=== PATIENT | female | born 1955 | race Caucasian/White ===

== ENCOUNTER 2018-04-03 16:57 | Emergency (ER) | payer OTHER ==
[~2018-04-03] VITALS: Ht 160 cm; Wt 60.0 kg
[2018-04-03 17:03] VITALS: BP 148/75
== END 2018-04-03 23:21 | disposition left against medical advice (07) ==
LOC: ER 16:57
DX: R22.0 Localized swelling, mass and lump, head (principal); I10 Essential (primary) hypertension; F17.200 Nicotine dependence, unspecified, uncomplicated
CPT/HCPCS: 99281

== ENCOUNTER 2018-04-29 12:45 | Emergency (ER) | payer OTHER ==
[~2018-04-29] VITALS: Ht 160 cm; Wt 60.0 kg
[2018-04-29 12:48] VITALS: BP 135/75
== END 2018-04-29 19:35 | disposition left against medical advice (07) ==
LOC: ER 15:29
DX: L98.9 Disorder of the skin and subcutaneous tissue, unspecified (principal); Z53.21 Procedure and treatment not carried out due to patient leaving prior to being seen by health care provider

== ENCOUNTER 2018-05-05 13:47 | Emergency (ER) | payer OTHER ==
[~2018-05-05] VITALS: Ht 160 cm; Wt 60.0 kg
[2018-05-05 13:57] VITALS: BP 131/72
== END 2018-05-05 16:30 | disposition left against medical advice (07) ==
LOC: ER 14:04
DX: Z53.21 Procedure and treatment not carried out due to patient leaving prior to being seen by health care provider (principal)

== ENCOUNTER 2018-07-25 11:27 | Emergency (ER) | payer OTHER ==
[~2018-07-25] VITALS: Ht 160 cm; Wt 60.0 kg
[2018-07-25 11:31] VITALS: BP 155/87
== END 2018-07-25 15:00 | disposition left against medical advice (07) ==
LOC: ER 14:50
DX: Z53.21 Procedure and treatment not carried out due to patient leaving prior to being seen by health care provider (principal)

== ENCOUNTER 2019-03-24 14:03 | Emergency (ER) | payer OTHER ==
[~2019-03-24] VITALS: Ht 160 cm; Wt 60.0 kg
[2019-03-24 14:15] VITALS: BP 126/79
== END 2019-03-24 15:54 | disposition home or self-care (01) ==
LOC: ER 14:08
DX: S91.052A Open bite, left ankle, initial encounter (principal); S91.051A Open bite, right ankle, initial encounter; S61.452A Open bite of left hand, initial encounter; S61.451A Open bite of right hand, initial encounter; D64.9 Anemia, unspecified; I10 Essential (primary) hypertension; W57.XXXA Bitten or stung by nonvenomous insect and other nonvenomous arthropods, initial encounter; Y93.89 Activity, other specified; Y92.89 Other specified places as the place of occurrence of the external cause; Y99.8 Other external cause status
CPT/HCPCS: 99283

== ENCOUNTER 2019-04-09 13:28 | Emergency (ER) | payer OTHER ==
[~2019-04-09] VITALS: Ht 160 cm; Wt 60.0 kg
[2019-04-09] MEDS ORDERED: PREDNISONE 20MG TABLET PO ONE (15:30)
[2019-04-09 15:42] VITALS: BP 130/88
== END 2019-04-09 15:43 | disposition home or self-care (01) ==
LOC: ER 13:28
DX: S40.862A Insect bite (nonvenomous) of left upper arm, initial encounter (principal); S40.861A Insect bite (nonvenomous) of right upper arm, initial encounter; D64.9 Anemia, unspecified; I10 Essential (primary) hypertension; W57.XXXA Bitten or stung by nonvenomous insect and other nonvenomous arthropods, initial encounter; Y93.89 Activity, other specified; Y92.89 Other specified places as the place of occurrence of the external cause; Y99.8 Other external cause status
CPT/HCPCS: 99283; J7512

== ENCOUNTER 2019-07-13 14:43 | Emergency (ER) | payer OTHER ==
[~2019-07-13] VITALS: Ht 160 cm; Wt 63.0 kg
[2019-07-13 15:17] VITALS: BP 132/78
== END 2019-07-13 15:51 | disposition left against medical advice (07) ==
LOC: ER 14:43
DX: Z53.21 Procedure and treatment not carried out due to patient leaving prior to being seen by health care provider (principal)

== ENCOUNTER 2019-08-25 14:32 | Emergency (ER) | payer OTHER ==
[~2019-08-25] VITALS: Ht 160 cm; Wt 61.0 kg
[2019-08-25 14:42] VITALS: BP 115/64
== END 2019-08-25 16:18 | disposition left against medical advice (07) ==
LOC: ER 14:32
DX: R06.02 Shortness of breath (principal); Z53.21 Procedure and treatment not carried out due to patient leaving prior to being seen by health care provider

== ENCOUNTER 2019-09-19 19:04 | Inpatient (IN) | payer OTHER ==
[~2019-09-19] VITALS: Ht 160 cm; Wt 69.2 kg
[2019-09-19] MEDS ORDERED: SODIUM CHLORIDE 0.9% 1,000 ML IV ONE (22:38)
[2019-09-19 23:17] LABS: EOSINOPHILS % 1.9 % (0.0-5.0); LYMPHOCYTES % 23.4 % (20.0-50.0); MEAN CORPUSCULAR HEMOGLOBIN 22.7 pg (28.0-32.0); MONOCYTES % 9.8 % (2.0-8.0); NEUTROPHILS % 63.9 % (40.0-76.0); PLATELET 303 x1000/uL (130-400); RED BLOOD CELL COUNT 1.96 mill/uL (4.2-5.4); RED CELL DISTRIBUTION WIDTH 20.4 % (11.6-14.6)
[2019-09-19 23:19] LABS: HEMATOCRIT. 14.5 % (36.0-48.0); HEMOGLOBIN. 4.5 g/dL (12.0-16.0)
[2019-09-19 23:23] LABS: CHLORIDE 109 mEq/L (98-107)
[2019-09-20] VITALS (8 sets, daily range): BP systolic 116–156; BP diastolic 54–78
[2019-09-20] MEDS ORDERED: ACETAMINOPHEN 325MG TABLET PO ONE (01:00)
[2019-09-20] MEDS ORDERED: LISI30TA36 MT (10:44)
[2019-09-20] MEDS ORDERED: AMLO5TAB88 MT (10:44)
[2019-09-20 11:57] LABS: MEAN CORPUSCULAR HEMOGLOBIN 24.1 pg (28.0-32.0); MEAN CORPUSCULAR VOLUME 77.2 fL (81.0-99.0); PLATELET 286 x1000/uL (130-400); RED BLOOD CELL COUNT 2.71 mill/uL (4.2-5.4); RED CELL DISTRIBUTION WIDTH 20.5 % (11.6-14.6)
[2019-09-20] MEDS ORDERED: PNEUMOCOCCAL 23-VAL P-SAC VAC 0.5 ML IM ONE (12:00)
[2019-09-20] MEDS ORDERED: HYDROCODONE/ACETAMINOPHEN 5/325MG TABLET PO PRN (12:00)
[2019-09-20] MEDS ORDERED: ACETAMINOPHEN 650MG/20.3ML UDC PO PRN (12:00)
[2019-09-20 12:01] LABS: HEMATOCRIT 20.9 % (36.0-48.0); HEMOGLOBIN 6.5 g/dL (12.0-16.0)
[2019-09-20] MEDS ORDERED: ONDANSETRON HCL 4MG/2ML INJ IV PRN (12:30)
[2019-09-20] MEDS ORDERED: MORPHINE SULFATE 2 MG/ML CPJ (NOT FOR IM USE) IV PRN (12:30)
[2019-09-20] MEDS ORDERED: HYDRALAZINE 20MG/ML VIAL IV PRN (13:45)
[2019-09-20] MEDS: DEXT 5%/0.45% NACL 1000ML 1,000 ML IV SCH (13:46)
[2019-09-20] MEDS: PANTOPRAZOLE SODIUM 40 MG/VIAL IV SCH (13:46)
[2019-09-20] MEDS: ACETAMINOPHEN 325MG TABLET PO PRN (14:15)
[2019-09-20 15:01] LABS: CHLORIDE 112 mEq/L (98-107)
[2019-09-20 15:03] LABS: INR 0.9; PROTHROMBIN TIME 9.7 sec (9.6-11.0)
[2019-09-20 15:09] LABS: TOTAL IRON BINDING CAPACITY 399 ug/dL (250-450)
[2019-09-20 17:59] LABS: CLARITY URINE CLEAR (CLEAR); COLOR URINE YELLOW (YELLOW); KETONES URINE NEGATIVE (NEGATIVE); LEUKOCYTE ESTERASE URINE 1+ (NEGATIVE); NITRITE URINE NEGATIVE (NEGATIVE); OCCULT BLOOD URINE NEGATIVE (NEGATIVE); PROTEIN URINE NEGATIVE (NEGATIVE); SPECIFIC GRAVITY URINE 1.008 (1.005-1.030); UROBILINOGEN URINE 0.2 E.U./dL (0.2-1.0)
[2019-09-20 18:22] LABS: *BENZODIAZEPINES SCREEN URINE NEGATIVE (NEGATIVE); *COCAINE SCREEN URINE NEGATIVE (NEGATIVE); METHADONE URINE SCREEN NEGATIVE (NEGATIVE)
[2019-09-20 18:23] LABS: *AMPHETAMINES SCREEN URINE PRESUMTIVE POSITIVE (NEGATIVE); *BARBITURATES SCREEN URINE NEGATIVE (NEGATIVE); CANNABINOID URINE SCREEN NEGATIVE (NEGATIVE); OPIATES URINE SCREEN NEGATIVE (NEGATIVE); PHENCYCLIDINE URINE SCREEN NEGATIVE (NEGATIVE)
[2019-09-20] MEDS ORDERED: VANCOMYCIN 1500MG in DEXTROSE 5% WATER 250ML IV NR (20:00)
[2019-09-20] MEDS: PIPERACILLIN/TAZOBACTAM 2.25 G in DEXTROSE 5% WATER 50 ML IV SCH (20:55)
[2019-09-21] VITALS (11 sets, daily range): BP systolic 108–137; BP diastolic 50–82
[2019-09-21] MEDS: DEXT 5%/0.45% NACL 1000ML 1,000 ML IV SCH ×2 (02:20→15:25)
[2019-09-21] MEDS: PIPERACILLIN/TAZOBACTAM 2.25 G in DEXTROSE 5% WATER 50 ML IV SCH ×4 (03:20→20:36)
[2019-09-21] MEDS: PANTOPRAZOLE SODIUM 40 MG/VIAL IV SCH (09:04)
[2019-09-21 09:17] LABS: BASOPHILS % 0.7 % (0.0-2.0); EOSINOPHILS % 3.5 % (0.0-5.0); HEMATOCRIT. 22.6 % (36.0-48.0); HEMOGLOBIN. 7.2 g/dL (12.0-16.0); LYMPHOCYTES % 19.9 % (20.0-50.0); MEAN CORPUSCULAR HEMOGLOBIN 25.2 pg (28.0-32.0); MEAN CORPUSCULAR VOLUME 79.1 fL (81.0-99.0); MEAN PLATELET VOLUME 8.1 fl (7.4-10.4); MONOCYTES % 8.4 % (2.0-8.0); NEUTROPHILS % 67.5 % (40.0-76.0); PLATELET 269 x1000/uL (130-400); RED BLOOD CELL COUNT 2.86 mill/uL (4.2-5.4); RED CELL DISTRIBUTION WIDTH 21.4 % (11.6-14.6)
[2019-09-21] MEDS ORDERED: FENTANYL CITRATE/PF 50MCG/ML 2ML VIAL ONE (12:40)
[2019-09-21] MEDS ORDERED: MIDAZOLAM HCL 5 MG/5 ML VIAL ONE (12:40)
[2019-09-21] MEDS ORDERED: MIDAZOLAM HCL 2 MG/2 ML VIAL IV PRN (12:46)
[2019-09-21] MEDS ORDERED: FENTANYL CITRATE/PF 50MCG/ML 2ML VIAL IV PRN (12:47)
[2019-09-21] MEDS ORDERED: VANCOMYCIN 1 G PREMIX 200 ML IV SCH (15:00)
[2019-09-21] MEDS ORDERED: METOCLOPRAMIDE HCL 10MG/2ML VIAL IV NR (20:30)
[2019-09-21] MEDS ORDERED: BISACODYL 5MG TABLET PO NR (20:30)
[2019-09-21] MEDS ORDERED: SORBITOL 70% SOLN 30ML PO NR (21:00)
[2019-09-21] MEDS: IRON SUCROSE COMPLEX 100 MG/5 ML ML IV SCH (22:58)
[2019-09-21] MEDS ORDERED: BISACODYL 5MG TABLET PO PRN (23:30)
[2019-09-21] MEDS: BISACODYL 5MG TABLET PO SCH (23:53)
[2019-09-21] MEDS: METOCLOPRAMIDE HCL 10MG/2ML VIAL IV SCH (23:53)
[2019-09-22] VITALS (7 sets, daily range): BP systolic 133–162; BP diastolic 72–98
[2019-09-22] MEDS: SORBITOL 70% SOLN 30ML PO SCH ×2 (00:24→06:42)
[2019-09-22 01:09] LABS: HEMOGLOBIN 10.2 g/dL (12.0-16.0)
[2019-09-22] MEDS: PIPERACILLIN/TAZOBACTAM 2.25 G in DEXTROSE 5% WATER 50 ML IV SCH ×4 (02:27→21:49)
[2019-09-22 04:24] LABS: BASOPHILS % 0.9 % (0.0-2.0); EOSINOPHILS % 1.3 % (0.0-5.0); HEMATOCRIT. 31.1 % (36.0-48.0); HEMOGLOBIN. 10.3 g/dL (12.0-16.0); LYMPHOCYTES % 9.1 % (20.0-50.0); MEAN CORPUSCULAR HEMOGLOBIN 26.5 pg (28.0-32.0); MEAN CORPUSCULAR VOLUME 79.9 fL (81.0-99.0); MEAN PLATELET VOLUME 7.9 fl (7.4-10.4); MONOCYTES % 9.7 % (2.0-8.0); PLATELET 306 x1000/uL (130-400); RED BLOOD CELL COUNT 3.88 mill/uL (4.2-5.4); RED CELL DISTRIBUTION WIDTH 20.2 % (11.6-14.6)
[2019-09-22] MEDS: DEXT 5%/0.45% NACL 1000ML 1,000 ML IV SCH ×2 (04:31→17:28)
[2019-09-22] MEDS: BISACODYL 5MG TABLET PO SCH (05:39)
[2019-09-22] MEDS: METOCLOPRAMIDE HCL 10MG/2ML VIAL IV SCH (05:39)
[2019-09-22] MEDS: PANTOPRAZOLE SODIUM 40 MG/VIAL IV SCH (08:39)
[2019-09-22] MEDS ORDERED: MIDAZOLAM HCL 5 MG/5 ML VIAL ONE (11:15)
[2019-09-22] MEDS ORDERED: FENTANYL CITRATE/PF 50MCG/ML 2ML VIAL ONE (11:15)
[2019-09-22] MEDS ORDERED: DIAZEPAM 5 MG/ML 2ML CPJ ONE (11:16)
[2019-09-22] MEDS ORDERED: SIMETHICONE 40 MG/0.6 ML 30ML ONE (11:16)
[2019-09-22] MEDS ORDERED: FENTANYL CITRATE/PF 50MCG/ML 2ML VIAL IV ONE (11:23)
[2019-09-22] MEDS ORDERED: MIDAZOLAM HCL 5 MG/5 ML VIAL IV ONE (11:24)
[2019-09-22] MEDS ORDERED: DIAZEPAM 5 MG/ML 2ML CPJ IV ONE (11:26)
[2019-09-22 17:19] LABS: VITAMIN B12 SERUM >2000 pg/mL pg/mL (211-911)
[2019-09-22 17:32] LABS: HEMATOCRIT 28.6 % (36.0-48.0); HEMOGLOBIN 9.2 g/dL (12.0-16.0)
[2019-09-22] MEDS: IPRATROPIUM/ALBUTEROL 0.5-3(2.5)MG/3ML NEB HHN SCH (21:46)
[2019-09-22] MEDS: IRON SUCROSE COMPLEX 100 MG/5 ML ML IV SCH (21:49)
[2019-09-22] MEDS: ACETAMINOPHEN 325MG TABLET PO PRN (22:04)
[2019-09-23] VITALS: BP 131/69
[2019-09-23] MEDS ORDERED: ACETAMINOPHEN 325MG TABLET PO PRN (00:30)
[2019-09-23] MEDS: IPRATROPIUM/ALBUTEROL 0.5-3(2.5)MG/3ML NEB HHN SCH ×2 (00:58→01:59)
[2019-09-23] MEDS: PIPERACILLIN/TAZOBACTAM 2.25 G in DEXTROSE 5% WATER 50 ML IV SCH ×3 (03:24→13:09)
[2019-09-23 04:00] VITALS: BP 114/74
[2019-09-23 06:08] LABS: BASOPHILS % 0.6 % (0.0-2.0); EOSINOPHILS % 1.1 % (0.0-5.0); HEMATOCRIT. 27.1 % (36.0-48.0); HEMOGLOBIN. 8.9 g/dL (12.0-16.0); LYMPHOCYTES % 11.2 % (20.0-50.0); MEAN CORPUSCULAR HEMOGLOBIN 26.3 pg (28.0-32.0); MEAN CORPUSCULAR VOLUME 79.9 fL (81.0-99.0); MEAN PLATELET VOLUME 8.2 fl (7.4-10.4); MONOCYTES % 11.5 % (2.0-8.0); NEUTROPHILS % 75.6 % (40.0-76.0); PLATELET 261 x1000/uL (130-400); RED BLOOD CELL COUNT 3.39 mill/uL (4.2-5.4); RED CELL DISTRIBUTION WIDTH 21.2 % (11.6-14.6)
[2019-09-23 08:00] VITALS: BP 124/75
[2019-09-23] MEDS: PANTOPRAZOLE SODIUM 40 MG/VIAL IV SCH (08:22)
[2019-09-23 12:00] VITALS: BP 136/81
[2019-09-23 15:53] VITALS: BP 140/75
[2019-09-23 16:00] VITALS: BP 140/75
[2019-09-24 09:06] LABS: FOLATE HEMATOCRIT 27.7 % (34.0-46.6)
[2019-09-25 13:06] LABS: FOLATE RBC 1780 ng/mL (>498)
== END 2019-09-23 16:51 | disposition home or self-care (01) | DRG 241 ==
LOC: ER 19:04 → 5WST 09-20 00:37 → EDBEDREQ 09-20 00:43 → EDBEDREQTM 09-20 00:43 → ENRESERV 09-20 08:17 → 5WST 09-21 22:55
PROVIDERS: ADMIT Internal Medicine; ATTEND Internal Medicine
PROC: 30233N1 Transfusion of Nonautologous Red Blood Cells into Peripheral Vein, Percutaneous Approach (ICD-10-PCS; 2019-09-20)
PROC: 0DB68ZX Excision of Stomach, Via Natural or Artificial Opening Endoscopic, Diagnostic (ICD-10-PCS; principal; 2019-09-21)
PROC: 0DB78ZX Excision of Stomach, Pylorus, Via Natural or Artificial Opening Endoscopic, Diagnostic (ICD-10-PCS; 2019-09-21)
PROC: 0DJD8ZZ Inspection of Lower Intestinal Tract, Via Natural or Artificial Opening Endoscopic (ICD-10-PCS; 2019-09-22)
DX: K29.71 Gastritis, unspecified, with bleeding (principal); N17.0 Acute kidney failure with tubular necrosis; E43 Unspecified severe protein-calorie malnutrition; E87.8 Other disorders of electrolyte and fluid balance, not elsewhere classified; E86.0 Dehydration; D50.9 Iron deficiency anemia, unspecified; F19.20 Other psychoactive substance dependence, uncomplicated; I12.9 Hypertensive chronic kidney disease with stage 1 through stage 4 chronic kidney disease, or unspecified chronic kidney disease; K44.9 Diaphragmatic hernia without obstruction or gangrene; K57.90 Diverticulosis of intestine, part unspecified, without perforation or abscess without bleeding; N18.9 Chronic kidney disease, unspecified; N39.0 Urinary tract infection, site not specified; T39.395A Adverse effect of other nonsteroidal anti-inflammatory drugs [NSAID], initial encounter; Z60.2 Problems related to living alone; Z87.891 Personal history of nicotine dependence; Z91.19 Patient's noncompliance with other medical treatment and regimen; Z79.1 Long term (current) use of non-steroidal anti-inflammatories (NSAID); Z68.27 Body mass index [BMI] 27.0-27.9, adult; Z79.899 Other long term (current) drug therapy; Y92.89 Other specified places as the place of occurrence of the external cause
CPT/HCPCS: 36415; 71045; 74176; 80048; 80053; 80305; 81003; 82607; 82747; 83540; 83550; 84484; 85014; 85018; 85025; 85027; 85044; 86850; 86900; 86920; 88305; 88312; 88313; 93005; 93970; 96361; 96365; 96375; 99291; C9113; J0360; J2250; J2543; J2765; J3010; J3370; J7030; J7040; J7060; J7620; P9016

== ENCOUNTER 2019-09-30 19:18 | Emergency (ER) | payer OTHER ==
[~2019-09-30] VITALS: Ht 160 cm; Wt 68.7 kg
[~2019-09-30 19:18] MED LIST: AMLO5TAB88 MT
[2019-09-30 23:03] LABS: BASOPHILS % 1.1 % (0.0-2.0); EOSINOPHILS % 2.8 % (0.0-5.0); HEMATOCRIT. 29.1 % (36.0-48.0); HEMOGLOBIN. 9.4 g/dL (12.0-16.0); INR 0.9; MEAN CORPUSCULAR HEMOGLOBIN 26.6 pg (28.0-32.0); MEAN CORPUSCULAR VOLUME 82.5 fL (81.0-99.0); MEAN PLATELET VOLUME 7.7 fl (7.4-10.4); MONOCYTES % 8.3 % (2.0-8.0); NEUTROPHILS % 71.8 % (40.0-76.0); PLATELET 394 x1000/uL (130-400); PROTHROMBIN TIME 9.7 sec (9.6-11.0); RED BLOOD CELL COUNT 3.53 mill/uL (4.2-5.4); RED CELL DISTRIBUTION WIDTH 22.5 % (11.6-14.6)
[2019-09-30 23:04] LABS: CHLORIDE 110 mEq/L (98-107)
[2019-09-30 23:17] LABS: PLATELET ESTIMATE NORMAL
[2019-10-01 00:22] VITALS: BP 126/72
== END 2019-10-01 00:23 | disposition home or self-care (01) ==
LOC: ER 19:18
DX: R19.7 Diarrhea, unspecified (principal); R10.9 Unspecified abdominal pain; D53.9 Nutritional anemia, unspecified; I10 Essential (primary) hypertension
CPT/HCPCS: 36415; 80053; 85025; 99283

== ENCOUNTER 2020-07-24 16:49 | Inpatient (IN) | payer OTHER ==
[~2020-07-24] VITALS: Ht 165.1 cm; Wt 69.9 kg
[2020-07-24 17:31] LABS: BASOPHILS % 1.3 % (0.0-2.0); EOSINOPHILS % 1.1 % (0.0-5.0); LYMPHOCYTES % 15.2 % (20.0-50.0); MEAN CORPUSCULAR HEMOGLOBIN 17.3 pg (28.0-32.0); MEAN CORPUSCULAR VOLUME 59.1 fL (81.0-99.0); MEAN PLATELET VOLUME 8.8 fl (7.4-10.4); MONOCYTES % 6.2 % (2.0-8.0); NEUTROPHILS % 76.2 % (40.0-76.0); PLATELET 416 x1000/uL (130-400); RED BLOOD CELL COUNT 3.29 mill/uL (4.2-5.4); RED CELL DISTRIBUTION WIDTH 21.2 % (11.6-14.6)
[2020-07-24 17:38] LABS: CHLORIDE 108 mEq/L (98-107)
[2020-07-24 17:39] LABS: PROTHROMBIN TIME 10.3 sec (9.6-11.0)
[2020-07-24 17:41] LABS: HEMATOCRIT. 19.5 % (36.0-48.0); HEMOGLOBIN. 5.7 g/dL (12.0-16.0)
[2020-07-24 21:20] LABS: PLATELET ESTIMATE INCREASED
[2020-07-24 23:52] VITALS: BP 146/76
[2020-07-25] VITALS (14 sets, daily range): BP systolic 118–142; BP diastolic 63–80
[2020-07-25] MEDS ORDERED: LORA10TA7 PO (00:49)
[2020-07-25] MEDS ORDERED: LOSA25TA26 PO (00:49)
[2020-07-25] MEDS: PANTOPRAZOLE 40MG DR TABLET PO SCH (06:56)
[2020-07-25] MEDS: AMLODIPINE 5MG TABLET PO SCH (09:23)
[2020-07-25] MEDS ORDERED: MORPHINE SULFATE 2 MG/ML CPJ (NOT FOR IM USE) IV PRN (12:00)
[2020-07-25] MEDS: ACETAMINOPHEN 325MG TABLET PO PRN (15:11)
[2020-07-25] MEDS ORDERED: BISACODYL 10MG SUPP PR PRN (15:45)
[2020-07-25] MEDS ORDERED: IPRATROPIUM/ALBUTEROL 0.5-3(2.5)MG/3ML NEB HHN PRN (15:45)
[2020-07-25] MEDS ORDERED: ONDANSETRON HCL 4MG/2ML INJ IV PRN (15:45)
[2020-07-25] MEDS ORDERED: CLONIDINE 0.1MG TABLET PO PRN (15:45)
[2020-07-25] MEDS: PIPERACILLIN/TAZOBACTAM 2.25 G in DEXTROSE 5% WATER 50 ML IV SCH ×2 (17:35→23:38)
[2020-07-25] MEDS: SODIUM CHLORIDE 0.45% 1,000 ML IV SCH ×2 (17:36→23:38)
[2020-07-25 19:23] LABS: CLARITY URINE CLEAR (CLEAR); COLOR URINE YELLOW (YELLOW); KETONES URINE NEGATIVE (NEGATIVE); LEUKOCYTE ESTERASE URINE 2+ (NEGATIVE); NITRITE URINE NEGATIVE (NEGATIVE); OCCULT BLOOD URINE NEGATIVE (NEGATIVE); PROTEIN URINE NEGATIVE (NEGATIVE); SPECIFIC GRAVITY URINE 1.014 (1.005-1.030); UROBILINOGEN URINE 0.2 E.U./dL (0.2-1.0)
[2020-07-25 19:34] LABS: *AMPHETAMINES SCREEN URINE PRESUMTIVE POSITIVE (NEGATIVE); CANNABINOID URINE SCREEN NEGATIVE (NEGATIVE); OPIATES URINE SCREEN NEGATIVE (NEGATIVE); PHENCYCLIDINE URINE SCREEN NEGATIVE (NEGATIVE)
[2020-07-25 19:35] LABS: *BARBITURATES SCREEN URINE NEGATIVE (NEGATIVE); *BENZODIAZEPINES SCREEN URINE NEGATIVE (NEGATIVE); *COCAINE SCREEN URINE NEGATIVE (NEGATIVE); METHADONE URINE SCREEN NEGATIVE (NEGATIVE)
[2020-07-25 21:02] LABS: BASOPHILS % 0.8 % (0.0-2.0); HEMATOCRIT. 33.5 % (36.0-48.0); HEMOGLOBIN. 10.8 g/dL (12.0-16.0); LYMPHOCYTES % 14.4 % (20.0-50.0); MEAN CORPUSCULAR HEMOGLOBIN 23.2 pg (28.0-32.0); MEAN CORPUSCULAR VOLUME 72.2 fL (81.0-99.0); MEAN PLATELET VOLUME 8.6 fl (7.4-10.4); MONOCYTES % 8.1 % (2.0-8.0); NEUTROPHILS % 74.7 % (40.0-76.0); PLATELET 304 x1000/uL (130-400); RED BLOOD CELL COUNT 4.64 mill/uL (4.2-5.4); RED CELL DISTRIBUTION WIDTH 30.8 % (11.6-14.6)
[2020-07-25 21:17] LABS: CHLORIDE 107 mEq/L (98-107)
[2020-07-25 21:25] LABS: TOTAL IRON BINDING CAPACITY 519 ug/dL (250-450)
[2020-07-25 21:27] LABS: T4 FREE 0.91 ng/dL (0.76-1.46)
[2020-07-25 21:37] LABS: FOLIC ACID (FOLATE) SERUM 11.4 ng/mL (>5.38)
[2020-07-26] VITALS: BP 141/80
[2020-07-26 00:50] LABS: HEMATOCRIT 34.2 % (36.0-48.0); HEMOGLOBIN 11.1 g/dL (12.0-16.0)
[2020-07-26 04:00] VITALS: BP 139/83
[2020-07-26] MEDS: PIPERACILLIN/TAZOBACTAM 2.25 G in DEXTROSE 5% WATER 50 ML IV SCH ×2 (06:06→10:42)
[2020-07-26] MEDS: PANTOPRAZOLE 40MG DR TABLET PO SCH (06:06)
[2020-07-26 06:24] LABS: BASOPHILS % 0.7 % (0.0-2.0); EOSINOPHILS % 2.2 % (0.0-5.0); HEMATOCRIT. 36.3 % (36.0-48.0); HEMOGLOBIN. 11.7 g/dL (12.0-16.0); LYMPHOCYTES % 13.7 % (20.0-50.0); MEAN CORPUSCULAR HEMOGLOBIN 23.3 pg (28.0-32.0); MEAN CORPUSCULAR VOLUME 72.2 fL (81.0-99.0); MEAN PLATELET VOLUME 8.8 fl (7.4-10.4); MONOCYTES % 5.6 % (2.0-8.0); NEUTROPHILS % 77.8 % (40.0-76.0); PLATELET 315 x1000/uL (130-400); RED BLOOD CELL COUNT 5.02 mill/uL (4.2-5.4); RED CELL DISTRIBUTION WIDTH 30.8 % (11.6-14.6)
[2020-07-26 06:32] LABS: CHLORIDE 107 mEq/L (98-107)
[2020-07-26 08:00] VITALS: BP 136/74
[2020-07-26] MEDS: ACETAMINOPHEN 325MG TABLET PO PRN (08:55)
[2020-07-26] MEDS: AMLODIPINE 5MG TABLET PO SCH (08:56)
[2020-07-26] MEDS ORDERED: BISACODYL 5MG TABLET PO SCH (09:00)
[2020-07-26 10:31] LABS: HEMATOCRIT 37.6 % (36.0-48.0); HEMOGLOBIN 11.9 g/dL (12.0-16.0)
[2020-07-26 12:00] VITALS: BP 127/67
[2020-07-26] MEDS ORDERED: DOCUSATE SODIUM 100MG CAPSULE PO SCH (12:00)
[2020-07-26] MEDS ORDERED: LACTULOSE 20G/30ML UDC PO NR (12:00)
[2020-07-26] MEDS ORDERED: NA PHOS,M-B/NA PHOS,DI-BA ENEMA 118ML PR NR (12:00)
[2020-07-26] MEDS: SODIUM CHLORIDE 0.45% 1,000 ML IV SCH (12:54)
[2020-07-26 14:13] VITALS: BP 127/67
== END 2020-07-26 15:06 | disposition home or self-care (01) | DRG 244 ==
LOC: ER 16:49 → 8WST 20:13 → EDBEDREQTM 20:31 → EDBEDREQ 20:31 → ENRESERV 22:18
PROVIDERS: ADMIT Internal Medicine; ATTEND Internal Medicine
PROC: 30233N1 Transfusion of Nonautologous Red Blood Cells into Peripheral Vein, Percutaneous Approach (ICD-10-PCS; principal; 2020-07-24)
DX: K57.91 Diverticulosis of intestine, part unspecified, without perforation or abscess with bleeding (principal); D50.9 Iron deficiency anemia, unspecified; K40.20 Bilateral inguinal hernia, without obstruction or gangrene, not specified as recurrent; K44.9 Diaphragmatic hernia without obstruction or gangrene; N18.9 Chronic kidney disease, unspecified; N39.0 Urinary tract infection, site not specified; Z79.899 Other long term (current) drug therapy; I50.33 Acute on chronic diastolic (congestive) heart failure; I13.0 Hypertensive heart and chronic kidney disease with heart failure and stage 1 through stage 4 chronic kidney disease, or unspecified chronic kidney disease; N17.0 Acute kidney failure with tubular necrosis
CPT/HCPCS: 36415; 74176; 80053; 80305; 81003; 82607; 82728; 82746; 83540; 83550; 84439; 84443; 85014; 85018; 85025; 85044; 86850; 86900; 86920; 93005; 93306; 93970; 99291; J2543; J7040; J7060; P9016

== ENCOUNTER 2020-10-11 16:39 | Emergency (ER) | payer OTHER ==
[~2020-10-11] VITALS: Ht 160 cm; Wt 70.0 kg
[~2020-10-11 16:39] MED LIST changes: +LORA10TA7 PO; +LOSA25TA26 PO
[2020-10-11 18:44] LABS: BASOPHILS % 0.3 % (0.0-2.0); EOSINOPHILS % 1.6 % (0.0-5.0); HEMATOCRIT. 31.6 % (36.0-48.0); HEMOGLOBIN. 10.2 g/dL (12.0-16.0); LYMPHOCYTES % 18.8 % (20.0-50.0); MEAN CORPUSCULAR HEMOGLOBIN 24.7 pg (28.0-32.0); MEAN CORPUSCULAR VOLUME 76.1 fL (81.0-99.0); MEAN PLATELET VOLUME 8.5 fl (7.4-10.4); MONOCYTES % 10.9 % (2.0-8.0); NEUTROPHILS % 68.4 % (40.0-76.0); PLATELET 236 x1000/uL (130-400); RED BLOOD CELL COUNT 4.14 mill/uL (4.2-5.4); RED CELL DISTRIBUTION WIDTH 22.4 % (11.6-14.6)
[2020-10-11 18:57] LABS: CHLORIDE 115 mEq/L (98-107)
[2020-10-11 19:05] LABS: INR 0.9; PARTIAL THROMBOPLASTIN TIME 30.1 sec (23.4-31.0); PROTHROMBIN TIME 9.9 sec (9.6-11.0)
[2020-10-11 19:42] LABS: PLATELET ESTIMATE NORMAL
[2020-10-11 20:39] VITALS: BP 115/82
== END 2020-10-11 20:40 | disposition home or self-care (01) ==
LOC: ER 16:39
DX: J18.9 Pneumonia, unspecified organism (principal); R53.1 Weakness; R53.83 Other fatigue; I10 Essential (primary) hypertension; D64.9 Anemia, unspecified; Z79.899 Other long term (current) drug therapy
CPT/HCPCS: 36415; 71045; 80053; 82962; 85025; 86850; 86900; 93005; 99285

== ENCOUNTER 2021-01-03 13:15 | Emergency (ER) | payer OTHER ==
[~2021-01-03] VITALS: Ht 160 cm; Wt 63.0 kg
[2021-01-03] MEDS ORDERED: ACET-2708 PO (15:38)
[2021-01-03] MEDS ORDERED: AMOX-494 MT (15:38)
[2021-01-03 15:53] VITALS: BP 124/71
== END 2021-01-03 15:54 | disposition home or self-care (01) ==
LOC: ER 13:47
DX: K02.9 Dental caries, unspecified (principal); D64.9 Anemia, unspecified; I10 Essential (primary) hypertension; Z79.899 Other long term (current) drug therapy
CPT/HCPCS: 99283

== ENCOUNTER 2021-02-17 17:28 | Emergency (ER) | payer OTHER ==
[~2021-02-17] VITALS: Ht 160 cm; Wt 64.0 kg
[~2021-02-17 17:28] MED LIST changes: +ACET-2708 PO; +AMOX-494 MT
[2021-02-17] MEDS ORDERED: PANTOPRAZOLE SODIUM 40 MG/VIAL IV STA (17:42)
[2021-02-17 17:59] LABS: CLARITY URINE CLEAR (CLEAR); COLOR URINE YELLOW (YELLOW); KETONES URINE TRACE (NEGATIVE); LEUKOCYTE ESTERASE URINE TRACE (NEGATIVE); NITRITE URINE NEGATIVE (NEGATIVE); OCCULT BLOOD URINE NEGATIVE (NEGATIVE); PROTEIN URINE NEGATIVE (NEGATIVE); SPECIFIC GRAVITY URINE 1.022 (1.005-1.030); UROBILINOGEN URINE 0.2 E.U./dL (0.2-1.0)
[2021-02-17 18:08] LABS: *AMPHETAMINES SCREEN URINE PRESUMTIVE POSITIVE (NEGATIVE); *BARBITURATES SCREEN URINE NEGATIVE (NEGATIVE); *BENZODIAZEPINES SCREEN URINE NEGATIVE (NEGATIVE); *COCAINE SCREEN URINE NEGATIVE (NEGATIVE); METHADONE URINE SCREEN NEGATIVE (NEGATIVE)
[2021-02-17 18:09] LABS: CANNABINOID URINE SCREEN NEGATIVE (NEGATIVE); OPIATES URINE SCREEN NEGATIVE (NEGATIVE); PHENCYCLIDINE URINE SCREEN NEGATIVE (NEGATIVE)
[2021-02-17 18:53] LABS: BASOPHILS % 1.2 % (0.0-2.0); EOSINOPHILS % 1.2 % (0.0-5.0); LYMPHOCYTES % 16.9 % (20.0-50.0); MEAN CORPUSCULAR HEMOGLOBIN 19.6 pg (28.0-32.0); MEAN CORPUSCULAR VOLUME 63.5 fL (81.0-99.0); MEAN PLATELET VOLUME 7.7 fl (7.4-10.4); MONOCYTES % 7.1 % (2.0-8.0); NEUTROPHILS % 73.6 % (40.0-76.0); PLATELET 348 x1000/uL (130-400); RED BLOOD CELL COUNT 3.13 mill/uL (4.2-5.4); RED CELL DISTRIBUTION WIDTH 19.8 % (11.6-14.6)
[2021-02-17 18:54] LABS: HEMOGLOBIN. 6.1 g/dL (12.0-16.0)
[2021-02-17 18:55] LABS: HEMATOCRIT. 19.9 % (36.0-48.0)
[2021-02-17 18:59] LABS: CHLORIDE 110 mEq/L (98-107)
[2021-02-17 19:02] LABS: PROTHROMBIN TIME 10.3 sec (9.6-11.0)
[2021-02-17 19:27] LABS: PLATELET ESTIMATE NORMAL
[2021-02-17] MEDS ORDERED: CEFTRIAXONE 1 G PREMIX 50 ML IV NR (19:45)
[2021-02-17] MEDS ORDERED: ACETAMINOPHEN 325MG TABLET PO ONE (20:15)
[2021-02-18 01:20] VITALS: BP 147/78
== END 2021-02-18 01:43 | disposition left against medical advice (07) ==
LOC: ER 17:28 → CANBEDREQ 02-18 06:33
DX: D64.9 Anemia, unspecified (principal); N17.9 Acute kidney failure, unspecified; N39.0 Urinary tract infection, site not specified; I10 Essential (primary) hypertension; F15.90 Other stimulant use, unspecified, uncomplicated; Z87.11 Personal history of peptic ulcer disease
CPT/HCPCS: 36415; 80053; 80305; 81003; 83690; 85025; 85610; 86850; 86900; 86901; 86920; 93005; 96365; 96375; 99285; C9113; J0696; J7040; Z7610; P9016

== ENCOUNTER 2021-10-29 16:56 | Emergency (ER) | payer OTHER ==
[~2021-10-29] VITALS: Ht 160 cm; Wt 64.0 kg
[2021-10-29 17:00] VITALS: BP 149/91
[2021-10-29 22:01] LABS: BASOPHILS % 0.5 % (0.0-2.0); EOSINOPHILS % 1.6 % (0.0-5.0); HEMATOCRIT. 38.8 % (36.0-48.0); LYMPHOCYTES % 21.7 % (20.0-50.0); MEAN CORPUSCULAR HEMOGLOBIN 28.8 pg (28.0-32.0); MEAN CORPUSCULAR VOLUME 85.7 fL (81.0-99.0); MEAN PLATELET VOLUME 9.4 fl (7.4-10.4); MONOCYTES % 6.1 % (2.0-8.0); NEUTROPHILS % 70.1 % (40.0-76.0); PLATELET 236 x1000/uL (130-400); RED BLOOD CELL COUNT 4.53 mill/uL (4.2-5.4); RED CELL DISTRIBUTION WIDTH 14.1 % (11.6-14.6)
[2021-10-29 22:21] LABS: CHLORIDE 111 mEq/L (98-107)
== END 2021-10-29 23:29 | disposition home or self-care (01) ==
LOC: ER 16:56
DX: D64.9 Anemia, unspecified (principal); I49.9 Cardiac arrhythmia, unspecified; I10 Essential (primary) hypertension; Z13.9 Encounter for screening, unspecified; Z98.890 Other specified postprocedural states
CPT/HCPCS: 36415; 80048; 84484; 85025; 93005; 99284

== ENCOUNTER 2022-03-10 15:31 | Emergency (ER) | payer MEDICARE, OTHER ==
[~2022-03-10] VITALS: Ht 152.4 cm; Wt 70.0 kg
[2022-03-10 15:53] VITALS: BP 142/83
[2022-03-10 18:14] LABS: BASOPHILS % 0.4 % (0.0-2.0); EOSINOPHILS % 1.8 % (0.0-5.0); HEMATOCRIT. 38.2 % (36.0-48.0); HEMOGLOBIN. 12.2 g/dL (12.0-16.0); LYMPHOCYTES % 16.4 % (20.0-50.0); MEAN CORPUSCULAR HEMOGLOBIN 27.7 pg (28.0-32.0); MEAN CORPUSCULAR VOLUME 86.8 fL (81.0-99.0); MEAN PLATELET VOLUME 8.6 fl (7.4-10.4); MONOCYTES % 8.9 % (2.0-8.0); NEUTROPHILS % 72.5 % (40.0-76.0); PLATELET 220 x1000/uL (130-400); RED CELL DISTRIBUTION WIDTH 15.3 % (11.6-14.6)
== END 2022-03-10 19:27 | disposition home or self-care (01) ==
LOC: ER 15:31
DX: R51.9 Headache, unspecified (principal); R53.1 Weakness; I12.9 Hypertensive chronic kidney disease with stage 1 through stage 4 chronic kidney disease, or unspecified chronic kidney disease; N18.9 Chronic kidney disease, unspecified; D63.1 Anemia in chronic kidney disease; F15.10 Other stimulant abuse, uncomplicated
CPT/HCPCS: 36415; 80048; 85025; 99284

== ENCOUNTER 2022-05-27 14:46 | Emergency (ER) | payer MEDICARE, OTHER ==
[~2022-05-27] VITALS: Ht 160 cm; Wt 68.0 kg
[2022-05-27 15:07] VITALS: BP 131/81
== END 2022-05-28 02:33 | disposition left against medical advice (07) ==
LOC: ER 14:46
DX: Z53.21 Procedure and treatment not carried out due to patient leaving prior to being seen by health care provider (principal)

== ENCOUNTER 2023-02-28 12:08 | Emergency (ER) | payer MEDICARE, OTHER ==
[~2023-02-28] VITALS: Ht 160 cm; Wt 71.7 kg
[2023-02-28 12:14] VITALS: BP 121/81; TEMP 98.4; O2SAT 96
[2023-02-28 12:20] VITALS: PULSE 101; RESP 18
[2023-02-28 13:03] LABS: BASOPHILS % 0.6 % (0.0-2.0); EOSINOPHILS % 0.8 % (0.0-5.0); HEMATOCRIT. 40.4 % (36.0-48.0); HEMOGLOBIN. 13.4 g/dL (12.0-16.0); LYMPHOCYTES % 13.8 % (20.0-50.0); MEAN CORPUSCULAR HEMOGLOBIN 27.8 pg (28.0-32.0); MEAN PLATELET VOLUME 8.9 fl (7.4-10.4); MONOCYTES % 7.4 % (2.0-8.0); NEUTROPHILS % 77.4 % (40.0-76.0); PLATELET 265 x1000/uL (130-400); RED BLOOD CELL COUNT 4.81 mill/uL (4.2-5.4)
[2023-02-28 13:07] LABS: CHLORIDE 107 mEq/L (98-107)
== END 2023-02-28 15:51 | disposition home or self-care (01) ==
LOC: ER 13:23
DX: I10 Essential (primary) hypertension (principal); R53.1 Weakness; F15.10 Other stimulant abuse, uncomplicated; E78.00 Pure hypercholesterolemia, unspecified
CPT/HCPCS: 36415; 80053; 85025; 86850; 86900; 93005; 99283

== ENCOUNTER 2023-08-04 15:46 | Emergency (ER) | payer MEDICARE, OTHER ==
[~2023-08-04] VITALS: Ht 160 cm; Wt 71.7 kg
[2023-08-04 15:57] VITALS: O2SAT 96
[2023-08-04 17:00] LABS: BASOPHILS % 0.5 % (0.0-2.0); EOSINOPHILS % 0.9 % (0.0-5.0); HEMOGLOBIN. 12.1 g/dL (12.0-16.0); LYMPHOCYTES % 14.5 % (20.0-50.0); MEAN CORPUSCULAR HEMOGLOBIN 26.9 pg (28.0-32.0); MEAN CORPUSCULAR HGB CONC 31.9 g/dL (31.0-37.0); MEAN CORPUSCULAR VOLUME 84.2 fL (81.0-99.0); MEAN PLATELET VOLUME 8.7 fl (7.4-10.4); MONOCYTES % 7.6 % (2.0-8.0); NEUTROPHILS % 76.5 % (40.0-76.0); PLATELET 227 x1000/uL (130-400); RED BLOOD CELL COUNT 4.51 mill/uL (4.2-5.4); RED CELL DISTRIBUTION WIDTH 16.2 % (11.6-14.6); WHITE BLOOD COUNT 7.6 x1000/uL (4.5-11.0)
[2023-08-04 17:07] LABS: PROTHROMBIN TIME 10.3 sec (9.6-11.0)
[2023-08-04] MEDS ORDERED: ASPIRIN 325MG EC TABLET PO ONE (17:15)
[2023-08-04 19:08] VITALS: TEMP 98.4
[2023-08-04 19:18] LABS: CHLORIDE 103 mEq/L (98-107); POTASSIUM 3.8 mEq/L (3.5-5.1); SODIUM 131 mEq/L (136-145)
[2023-08-04 19:19] LABS: CALCIUM 8.8 mg/dL (8.7-10.4); CARBON DIOXIDE 21 mEq/L (21-32); CREATININE 1.2 mg/dL (0.6-1.0); GLUCOSE 134 mg/dL (70-105)
[2023-08-04 19:20] LABS: ALANINE AMINOTRANSFERASE 14 IU/L (10-49); ALBUMIN 5.5 g/dL (3.2-4.8); ASPARTATE AMINOTRANSFERASE 26 IU/L (<34); BILIRUBIN TOTAL 0.4 mg/dL (0.1-1.0); TROPONIN I HIGH SENSITIVITY 5 ng/L (3.0-34)
[2023-08-04 19:26] LABS: UREA NITROGEN BLOOD 24 mg/dL (9-23)
[2023-08-04 22:10] VITALS: BP 125/79; PULSE 74; RESP 17
== END 2023-08-04 22:05 | disposition left against medical advice (07) ==
LOC: ER 15:46
DX: G45.9 Transient cerebral ischemic attack, unspecified (principal); D64.9 Anemia, unspecified; E78.00 Pure hypercholesterolemia, unspecified; I10 Essential (primary) hypertension; F15.10 Other stimulant abuse, uncomplicated
CPT/HCPCS: 36415; 70496; 70498; 71045; 80053; 84484; 85025; 93005; 99291

== ENCOUNTER 2023-09-11 15:42 | Emergency (ER) | payer MEDICARE, OTHER ==
[~2023-09-11] VITALS: Ht 160 cm; Wt 70.0 kg
[2023-09-11 15:45] VITALS: TEMP 98.4; O2SAT 97
[2023-09-11 16:33] LABS: BASOPHILS % 0.7 % (0.0-2.0); EOSINOPHILS % 2.1 % (0.0-5.0); HEMATOCRIT. 33.6 % (36.0-48.0); HEMOGLOBIN. 11.3 g/dL (12.0-16.0); LYMPHOCYTES % 19.3 % (20.0-50.0); MEAN CORPUSCULAR HEMOGLOBIN 28.1 pg (28.0-32.0); MEAN CORPUSCULAR HGB CONC 33.7 g/dL (31.0-37.0); MEAN CORPUSCULAR VOLUME 83.4 fL (81.0-99.0); MEAN PLATELET VOLUME 8.1 fl (7.4-10.4); MONOCYTES % 8.9 % (2.0-8.0); PLATELET 229 x1000/uL (130-400); RED BLOOD CELL COUNT 4.03 mill/uL (4.2-5.4); RED CELL DISTRIBUTION WIDTH 15.8 % (11.6-14.6); WHITE BLOOD COUNT 6.2 x1000/uL (4.5-11.0)
[2023-09-11 16:56] LABS: ACETAMINOPHEN < 2 ug/mL (10-30); ALANINE AMINOTRANSFERASE 11 IU/L (10-49); ALBUMIN 3.8 g/dL (3.2-4.8); ASPARTATE AMINOTRANSFERASE 18 IU/L (<34); BILIRUBIN TOTAL 0.2 mg/dL (0.1-1.0); CALCIUM 9.1 mg/dL (8.7-10.4); CARBON DIOXIDE 28 mEq/L (21-32); CHLORIDE 110 mEq/L (98-107); CREATININE 1.4 mg/dL (0.6-1.0); GLUCOSE 119 mg/dL (70-105); POTASSIUM 3.8 mEq/L (3.5-5.1); PROTEIN TOTAL 7.3 g/dL (6.0-8.3); SODIUM 144 mEq/L (136-145); THYROID STIMULATING HORMONE 0.62 uIU/mL (0.55-4.78); UREA NITROGEN BLOOD 30 mg/dL (9-23)
[2023-09-11 16:58] LABS: ETHANOL BLOOD < 10 mg/dL (<10)
[2023-09-12 12:03] LABS: CLARITY URINE CLEAR (CLEAR); COLOR URINE YELLOW (YELLOW); GLUCOSE URINE NEGATIVE (NEGATIVE); KETONES URINE NEGATIVE (NEGATIVE); LEUKOCYTE ESTERASE URINE NEGATIVE (NEGATIVE); NITRITE URINE NEGATIVE (NEGATIVE); OCCULT BLOOD URINE NEGATIVE (NEGATIVE); PROTEIN URINE NEGATIVE (NEGATIVE); SPECIFIC GRAVITY URINE 1.016 (1.005-1.030); UROBILINOGEN URINE 0.2 E.U./dL (0.2-1.0)
[2023-09-12 15:12] LABS: *AMPHETAMINES SCREEN URINE PRESUMPTIVE POSITIVE (NEGATIVE); *BARBITURATES SCREEN URINE NEGATIVE (NEGATIVE); *BENZODIAZEPINES SCREEN URINE NEGATIVE (NEGATIVE); *COCAINE SCREEN URINE NEGATIVE (NEGATIVE); CANNABINOID URINE SCREEN NEGATIVE (NEGATIVE); ECSTASY MDMA SCREEN URINE NEGATIVE (NEGATIVE); METHADONE URINE SCREEN Neg (NEGATIVE); OPIATES URINE SCREEN NEGATIVE (NEGATIVE); PHENCYCLIDINE URINE SCREEN NEGATIVE (NEGATIVE)
[2023-09-12] MEDS ORDERED: QUETIAPINE FUMARATE 50MG TABLET PO SCH (21:00)
[2023-09-13 12:53] VITALS: BP 144/80; PULSE 78; RESP 16
== END 2023-09-13 14:20 | disposition home or self-care (01) ==
LOC: ER 15:42
DX: R45.851 Suicidal ideations (principal); N17.9 Acute kidney failure, unspecified; D64.9 Anemia, unspecified; E78.00 Pure hypercholesterolemia, unspecified; I10 Essential (primary) hypertension; Z20.822 Contact with and (suspected) exposure to COVID-19
CPT/HCPCS: 80053; 80305; 81003; 80307; 80329; 80320; 83690; 84443; 85025; 36415; 93005; 99283; 87426; C9803; G0480

== ENCOUNTER 2024-01-05 15:22 | Emergency (ER) | payer MEDICARE, MEDICAID ==
[~2024-01-05] VITALS: Ht 160 cm; Wt 70.0 kg
[2024-01-05 15:24] VITALS: BP 131/89; PULSE 78; RESP 18; TEMP 98.8; O2SAT 98
== END 2024-01-05 18:15 | disposition left against medical advice (07) ==
LOC: ER 15:22
DX: F41.9 Anxiety disorder, unspecified (principal); Z53.21 Procedure and treatment not carried out due to patient leaving prior to being seen by health care provider
CPT/HCPCS: 99281

== ENCOUNTER 2024-08-11 15:35 | Emergency (ER) | payer MEDICARE, MEDICAID ==
[~2024-08-11] VITALS: Ht 160 cm; Wt 75.0 kg
[2024-08-11 15:36] VITALS: O2SAT 100
[2024-08-11 17:45] LABS: BASOPHILS % 0.6 % (0.0-2.0); EOSINOPHILS % 1.5 % (0.0-5.0); HEMATOCRIT. 41.2 % (36.0-48.0); HEMOGLOBIN. 13.4 g/dL (12.0-16.0); LYMPHOCYTES % 27.1 % (20.0-50.0); MEAN CORPUSCULAR HEMOGLOBIN 28.4 pg (28.0-32.0); MEAN CORPUSCULAR HGB CONC 32.6 g/dL (31.0-37.0); MEAN CORPUSCULAR VOLUME 87.1 fL (81.0-99.0); MEAN PLATELET VOLUME 8.9 fl (7.4-10.4); MONOCYTES % 9.6 % (2.0-8.0); NEUTROPHILS % 61.2 % (40.0-76.0); PLATELET 227 x1000/uL (130-400); RED BLOOD CELL COUNT 4.74 mill/uL (4.2-5.4)
[2024-08-11 17:48] LABS: CHLORIDE 107 mEq/L (98-107); POTASSIUM 3.8 mEq/L (3.5-5.1); SODIUM 141 mEq/L (136-145)
[2024-08-11 17:49] LABS: CALCIUM 10.2 mg/dL (8.7-10.4); CARBON DIOXIDE 25 mEq/L (21-32)
[2024-08-11 17:54] LABS: CREATININE 1.5 mg/dL (0.6-1.0); GLUCOSE 117 mg/dL (70-105); UREA NITROGEN BLOOD 16 mg/dL (9-23)
[2024-08-11 17:56] LABS: ALANINE AMINOTRANSFERASE 16 IU/L (10-49); ALBUMIN 4.5 g/dL (3.2-4.8); ASPARTATE AMINOTRANSFERASE 23 IU/L (<34); BILIRUBIN DIRECT 0.1 mg/dL (<=3.0); BILIRUBIN TOTAL 0.3 mg/dL (0.1-1.0); PROTEIN TOTAL 7.9 g/dL (6.0-8.3)
[2024-08-11] MEDS ORDERED: FAMO-135 MT (18:24)
[2024-08-11 18:30] VITALS: BP 120/75; PULSE 83; RESP 16; O2SAT 100
== END 2024-08-11 19:18 | disposition home or self-care (01) ==
LOC: ER 15:35
DX: B34.9 Viral infection, unspecified (principal); K44.9 Diaphragmatic hernia without obstruction or gangrene; E78.00 Pure hypercholesterolemia, unspecified; I10 Essential (primary) hypertension; D64.9 Anemia, unspecified; F15.90 Other stimulant use, unspecified, uncomplicated; Z79.899 Other long term (current) drug therapy
CPT/HCPCS: 36415; 74176; 80048; 80076; 85025; 99284